=== PATIENT | female | born 1995 | race American Indian/Alaskan Native ===

== ENCOUNTER 2020-06-12 10:43 | Observation (INO) | payer MEDICAID ==
--- NOTE | 2020-06-12 11:51 | Event Note ---
ED Screening Note Date of service: 06/12/20 Time: 11:48 ED Screening Note: 24-year-old female patient presents emergency department with complaints of epigastric abdominal pain with associated nausea and vomiting starting this morning. No history of similar symptoms. No known sick contacts. No current steroid and antibiotic use. Last bowel movement was today. No black or bloody stools. LMP two days ago. No history of prior abdominal surgeries. General: Awake, appropriately interactive. Appears uncomfortable, alternating between pacing the room and sitting hunched over emesis bag. Neck: Supple. Full range of motion intact. Cardiovascular: Normal peripheral perfusion. Pulmonary: No respiratory distress. Patient is speaking normally without use of accessory muscles. Abdomen: Soft, nondistended. Diffuse tenderness to palpation most pronounced along the epigastric/periumbilical area. Skin: No apparent rashes or lesions. Neurological: No facial asymmetry. Speech is clear. Follows commands. Patient is alert and oriented. Musculoskeletal: Moves all four extremities spontaneously with normal range of motion. Psych: Cooperative. Appropriate mood and affect. Patient appears uncomfortable in triage with significant abdominal tenderness; CT abd/pelvis ordered pending HCG results. I have greeted and performed a focused rapid initial assessment of this patient. A comprehensive ED assessment and evaluation of the patient, analysis of all test results, and completion of the medical decision-making process will be conducted by additional ED providers. This initial assessment/diagnostic orders/clinical plan/treatment(s) is/are subject to change based on patients health status, clinical progression and re-assessment. Further treatment and workup at subsequent clinical provider's discretion. Patient/guardian urged not to elope from the ED as their condition may be serious if not clinically assessed and managed.
[2020-06-12 12:17] LABS: Basophils % (Auto) 0.5 % (0.0-1.8); Eosinophils % (Auto) 0.2 % (0.0-4.3); Hematocrit 31.2 % (30.3-42.9); Hemoglobin 10.4 gm/dl (10.1-14.3); Lymphocytes # (Auto) 1.9 K/mm3 (1.2-5.4); Lymphocytes % (Auto) 22.9 % (13.4-35.0); Mean Corpuscular HGB Conc 33 % (30-34); Mean Corpuscular Volume 71 fl (79-97); Monocytes # (Auto) 0.7 K/mm3 (0.0-0.8); Monocytes % (Auto) 8.3 % (0.0-7.3); Platelet Count 344 K/mm3 (140-440)
[2020-06-12 12:32] LABS: Alanine Aminotransferase 8 units/L (7-56); Albumin 4.3 g/dL (3.9-5); Blood Urea Nitrogen 8 mg/dL (7-17); Calcium 9.2 mg/dL (8.4-10.2); Hemolysis Index 0
[2020-06-12 12:35] LABS: BUN/Creatinine Ratio 11
[2020-06-12] MEDS ORDERED: ONDANSETRON 4 MG/2 ML INJ IV ONE ×2 (13:11→13:54)
[2020-06-12] MEDS ORDERED: MORPHINE 4 MG/1 ML INJ IV ONE ×2 (13:11→13:54)
[2020-06-12] MEDS ORDERED: SODIUM CHLORIDE 0.9% 1000 ML 1,000 ML IV ONE (13:57)
[2020-06-12] MEDS ORDERED: PANTOPRAZOLE 40 MG INJ IV ONE (13:59)
--- NOTE | 2020-06-12 13:59 | Emergency Department Report ---
ED Abdominal Pain HPI - General Chief Complaint: Abdominal Pain Stated Complaint: ABD PAIN PUI?: No Time Seen by Provider: 06/12/20 13:10 Source: patient Mode of arrival: Ambulatory Limitations: No Limitations - History of Present Illness Initial Comments: Chief complaint: Stomach pain, vomiting HPI this is a healthy 24-year-old female without significant past medical history who presents with severe diffuse abdominal pain. It is a tugging sensation. 8 out of 10 in severity. She has had copious amount of vomiting. She awakened with the symptoms this morning. 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 None of her patients have Covid symptoms. Patient ate restaurant prepared [place] seafood last night including [place] crab l egs Patient denies fever, cough, shortness of breath, diarrhea. MD Complaint: abdominal pain -: Gradual, This morning Location: diffuse Severity scale (0 -10): 8 Quality: dull, other (Tugging sensation) Consistency: constant Improves With: nothing Worsens With: nothing Context: possible food poisoning Associated Symptoms: nausea, vomiting - Related Data Previous Rx's Medication Instructions Recorded Last Taken Type Acetaminophen 500 mg PO Q8H PRN #12 tablet 02/11/18 Unknown Rx Acyclovir 800 mg PO Q12H 7 Days #14 tablet 02/11/18 Unknown Rx Vit No.130/Iron/Folic 1 each PO QAM 30 Days #30 tablet 02/11/18 Unknown Rx [ Tablet] Vit-Fe Fumar-FA [ 1 tab PO QDAY #30 tablet 02/11/18 Unknown Rx Vitamin] cephALEXin [Keflex] 500 mg PO Q8HR 7 Days #14 cap 02/11/18 Unknown Rx metroNIDAZOLE [Flagyl] 500 mg PO Q12HR 7 Days #14 tab 02/11/18 Unknown Rx Allergies Allergy/AdvReac Type Severity Reaction Status Date / Time No Known Allergies Allergy Verified 02/11/18 00:53 ED Review of Systems ROS: Stated complaint: ABD PAIN Other details as noted in HPI Comment: All other systems reviewed and negative Constitutional: denies: fever, malaise Respiratory: denies: cough, shortness of breath Gastrointestinal: abdominal pain, nausea, vomiting. denies: diarrhea ED Past Medical Hx - Past Medical History Previous Medical History?: No - Surgical History Past Surgical History?: Yes Additional Surgical History: - Social History Smoking Status: Never Smoker Substance Use Type: None - Medications Home Medications: Home Medications Medication Instructions Recorded Confirmed Last Taken Type Acetaminophen 500 mg PO Q8H PRN #12 tablet 02/11/18 Unknown Rx Acyclovir 800 mg PO Q12H 7 Days #14 tablet 02/11/18 Unknown Rx Vit No.130/Iron/Folic 1 each PO QAM 30 Days #30 tablet 02/11/18 Unknown Rx [ Tablet] Vit-Fe Fumar-FA [ 1 tab PO QDAY #30 tablet 02/11/18 Unknown Rx Vitamin] cephALEXin [Keflex] 500 mg PO Q8HR 7 Days #14 cap 02/11/18 Unknown Rx metroNIDAZOLE [Flagyl] 500 mg PO Q12HR 7 Days #14 tab 02/11/18 Unknown Rx ED Physical Exam - General Limitations: No Limitations General appearance: alert, in no apparent distress, other (Patient appears uncomfortable,) - Head Head exam: Present: atraumatic, normocephalic - Eye Eye exam: Present: normal appearance - ENT ENT exam: Present: mucous membranes moist - Neck Neck exam: Present: normal inspection, full ROM - Respiratory Respiratory exam: Present: normal lung sounds bilaterally. Absent: respiratory distress, wheezes, rales, rhonchi - Cardiovascular Cardiovascular Exam: Present: regular rate, normal rhythm, normal heart sounds. Absent: systolic murmur, diastolic murmur, rubs, gallop - GI/Abdominal GI/Abdominal exam: Present: soft, tenderness, guarding (Voluntary guarding, patient is holding abdomen), normal bowel sounds, other (Right lower quadrant tenderness). Absent: distended, rebound - Extremities Exam Extremities exam: Present: normal inspection - Neurological Exam Neurological exam: Present: alert, oriented X3 - Psychiatric Psychiatric exam: Present: normal affect, normal mood - Skin Skin exam: Present: warm, dry, intact, normal color. Absent: rash ED Course Vital Signs 06/12/20 06/12/20 10:55 13:59 Temperature 98.2 F Pulse Rate 78 Respiratory 16 16 Rate Blood Pressure 153/94 Blood Pressure 157/95 [Left] O2 Sat by Pulse 99 98 Oximetry - Reevaluation(s) Reevaluation #1: I was given verbal report from radiologist who detected early appendicitis with dilated appendix and appendicolith. ED Medical Decision Making - Lab Data Result diagrams: 06/12/20 11:33 06/12/20 11:33 Laboratory Results - last 24 hr 06/12/20 06/12/20 06/12/20 11:33 11:33 11:33 WBC 8.4 RBC 4.40 Hgb 10.4 Hct 31.2 MCV 71 L MCH 24 L MCHC 33 RDW 16.0 H Plt Count 344 Lymph % (Auto) 22.9 [place] % (Auto) 8.3 H Eos % (Auto) 0.2 Baso % (Auto) 0.5 Lymph # (Auto) 1.9 [place] # (Auto) 0.7 Eos # (Auto) 0.0 Baso # (Auto) 0.0 Seg Neutrophils % 68.1 Seg Neutrophils # 5.7 Sodium 138 Potassium 3.5 L Chloride 103.9 Carbon Dioxide 24 Anion Gap 14 BUN 8 Creatinine 0.7 Estimated GFR > 60 BUN/Creatinine Ratio 11 Glucose 99 Calcium 9.2 Magnesium Total Bilirubin 0.40 AST 15 ALT 8 Alkaline Phosphatase 73 Total Protein 7.3 Albumin 4.3 Albumin/Globulin Ratio 1.4 Lipase 21 HCG, Quant < 2 06/12/20 11:58 WBC RBC Hgb Hct MCV MCH MCHC RDW Plt Count Lymph % (Auto) [place] % (Auto) Eos % (Auto) Baso % (Auto) Lymph # (Auto) [place] # (Auto) Eos # (Auto) Baso # (Auto) Seg Neutrophils % Seg Neutrophils # Sodium Potassium Chloride Carbon Dioxide Anion Gap BUN Creatinine Estimated GFR BUN/Creatinine Ratio Glucose Calcium Magnesium 2.00 Total Bilirubin AST ALT Alkaline Phosphatase Total Protein Albumin Albumin/Globulin Ratio Lipase HCG, Quant - Radiology Data Radiology results: report reviewed - Medical Decision Making Acute Appendicitis, Dr. Sheehan anticipates surgery today. NPO, IVF, IV analgesia, IV antiemetic, IV Zosyn. Critical care attestation.: If time is entered above; I have spent that time in minutes in the direct care of this critically ill patient, excluding procedure time. ED Disposition Clinical Impression: Acute appendicitis Disposition: OP ADMIT IP TO THIS HOSP Is pt being admited?: Yes Does the pt Need Aspirin: No Condition: Stable Instructions: Abdominal Pain (ED)
--- NOTE | 2020-06-12 14:09 | Cat Scan Report ---
CT ABDOMEN AND PELVIS WITH CONTRAST HISTORY: Abdominal pain, nausea, vomiting COMPARISON: None TECHNIQUE: Routine abdominal and pelvic CT exam performed following intravenous contrast administrat ion.. All CT scans at this location are performed using CT dose reduction for ALARA by means of autom ated exposure control. FINDINGS: CT ABDOMEN: Lung Bases: No significant abnormality. Liver: No significant abnormality. Biliary: No significant abnormality. Spleen: No significant abnormality. Unenlarged. Pancreas: No significant abnormality. Adrenals: No significant abnormality. Kidneys: No significant abnormality. Lymphatics: No lymphadenopathy. Vasculature: No significant abnormality. Bowel/Peritoneum: There is distention of the appendix with appendicolith in the base of the appendix and periappendiceal fat draining suggesting acute appendicitis. There is no abscess. There is no free air or obstruction. CT PELVIC: : No significant abnormality. Lymphatics: No lymphadenopathy. Osseous Structures: No aggressive appearing osseous lesions. Additional Findings: None IMPRESSION: 1. Findings suggesting acute appendicitis. No evidence of abscess or perforation. Signer Name: Charlie Pandey MD Signed: 06/12/2020 2:04 PM Workstation Name: [email or web address]
[2020-06-12] MEDS ORDERED: PIPERACIL/TAZOBACTA 4.5/NS 100 4.5 GM/100 ML VIAL IV ONE (14:29)
--- NOTE | 2020-06-12 14:33 | Consultation ---
Medications and Allergies Allergies Allergy/AdvReac Type Severity Reaction Status Date / Time No Known Allergies Allergy Verified 02/11/18 00:53 Home Medications Medication Instructions Recorded Confirmed Last Taken Type Acetaminophen 500 mg PO Q8H PRN #12 tablet 02/11/18 Unknown Rx Acyclovir 800 mg PO Q12H 7 Days #14 tablet 02/11/18 Unknown Rx Vit No.130/Iron/Folic 1 each PO QAM 30 Days #30 tablet 02/11/18 Unknown Rx [ Tablet] Vit-Fe Fumar-FA [ 1 tab PO QDAY #30 tablet 02/11/18 Unknown Rx Vitamin] cephALEXin [Keflex] 500 mg PO Q8HR 7 Days #14 cap 02/11/18 Unknown Rx metroNIDAZOLE [Flagyl] 500 mg PO Q12HR 7 Days #14 tab 02/11/18 Unknown Rx Active Meds: Active Medications Sodium Chloride (Nacl 0.9% 1000 Ml) 1,000 mls @ 999 mls/hr IV BOLUS ONE Stop: 06/12/20 14:57 Last Admin: 06/12/20 14:07 Dose: 999 mls/hr Documented by: Piperacillin Sod/Tazobactam Sod (Zosyn/Ns 4.5gm/100ml) 4.5 gm in 100 mls @ 200 mls/hr IV ONCE ONE; Protocol Stop: 06/12/20 14:58 Exam Vital Signs Temp Pulse Resp BP Pulse Ox 98.2 F 78 16 153/94 99 06/12/20 10:55 06/12/20 10:55 06/12/20 10:55 06/12/20 10:55 06/12/20 10:55 Results - Labs 06/12/20 11:33 06/12/20 11:33 Abnormal lab results 06/12/20 06/12/20 Range/Units 11:33 11:33 MCV 71 L (79-97) fl MCH 24 L (28-32) pg RDW 16.0 H (13.2-15.2) % [place] % (Auto) 8.3 H (0.0-7.3) % Potassium 3.5 L (3.6-5.0) mmol/L Diabetes panel 06/12/20 Range/Units 11:33 Sodium 138 (137-145) mmol/L Potassium 3.5 L (3.6-5.0) mmol/L Chloride 103.9 (98-107) mmol/L Carbon Dioxide 24 (22-30) mmol/L BUN 8 (7-17) mg/dL Creatinine 0.7 (0.6-1.2) mg/dL Glucose 99 (65-100) mg/dL Calcium 9.2 (8.4-10.2) mg/dL AST 15 (5-40) units/L ALT 8 (7-56) units/L Alkaline Phosphatase 73 (35-129) units/L Total Protein 7.3 (6.3-8.2) g/dL Albumin 4.3 (3.9-5) g/dL Calcium panel 06/12/20 Range/Units 11:33 Calcium 9.2 (8.4-10.2) mg/dL Albumin 4.3 (3.9-5) g/dL Pituitary panel 06/12/20 Range/Units 11:33 Sodium 138 (137-145) mmol/L Potassium 3.5 L (3.6-5.0) mmol/L Chloride 103.9 (98-107) mmol/L Carbon Dioxide 24 (22-30) mmol/L BUN 8 (7-17) mg/dL Creatinine 0.7 (0.6-1.2) mg/dL Glucose 99 (65-100) mg/dL Calcium 9.2 (8.4-10.2) mg/dL Adrenal panel 06/12/20 Range/Units 11:33 Sodium 138 (137-145) mmol/L Potassium 3.5 L (3.6-5.0) mmol/L Chloride 103.9 (98-107) mmol/L Carbon Dioxide 24 (22-30) mmol/L BUN 8 (7-17) mg/dL Creatinine 0.7 (0.6-1.2) mg/dL Glucose 99 (65-100) mg/dL Calcium 9.2 (8.4-10.2) mg/dL Total Bilirubin 0.40 (0.1-1.2) mg/dL AST 15 (5-40) units/L ALT 8 (7-56) units/L Alkaline Phosphatase 73 (35-129) units/L Total Protein 7.3 (6.3-8.2) g/dL Albumin 4.3 (3.9-5) g/dL
[2020-06-12 14:43] LABS: Bilirubin,Urine NEG (Negative); Blood,Urine NEG (Negative); Color,Urine Yellow (Yellow); Mucus,Urine FEW /HPF; Protein,Urine <15 mg/dL mg/dL (Negative); RBC,Urine < 1.0 /HPF (0.0-6.0); Urobilinogen,Urine < 2.0 mg/dL (<2.0)
--- NOTE | 2020-06-12 15:06 | Consultation ---
History of Present Illness Consult date: 06/12/20 Reason for consult: abdominal pain Chief complaint: abdominal pain - History of present illness History of present illness: 24 yo F with no PMHx who presented to the emergency room with acute onset abdomi nal pain that started today. She states that the pain is located all over but started in the right mid abdomen. She has never had pain like this before. The pain is sharp and radiates all over. There are no exacerbating or alleviating factors. She states she had multiple episodes of nausea and vomiting. No fevers or chills. No constipation or diarrhea. No chest pain or shortness of breath. Past History Past Medical History: No medical history Past Surgical History: Social history: smoking (Marijuana), alcohol abuse (Social). denies: prescription drug abuse, IV drug use Family history: no significant family history Medications and Allergies Allergies Allergy/AdvReac Type Severity Reaction Status Date / Time No Known Allergies Allergy Verified 02/11/18 00:53 Home Medications Medication Instructions Recorded Confirmed Last Taken Type Acetaminophen 500 mg PO Q8H PRN #12 tablet 02/11/18 Unknown Rx Acyclovir 800 mg PO Q12H 7 Days #14 tablet 02/11/18 Unknown Rx Vit No.130/Iron/Folic 1 each PO QAM 30 Days #30 tablet 02/11/18 Unknown Rx [ Tablet] Vit-Fe Fumar-FA [ 1 tab PO QDAY #30 tablet 02/11/18 Unknown Rx Vitamin] cephALEXin [Keflex] 500 mg PO Q8HR 7 Days #14 cap 02/11/18 Unknown Rx metroNIDAZOLE [Flagyl] 500 mg PO Q12HR 7 Days #14 tab 02/11/18 Unknown Rx Review of Systems All systems: negative (10 point ROS performed and negative except for that listed in HPI) Exam Vital Signs Temp Pulse Resp BP Pulse Ox 98.2 F 78 16 153/94 99 06/12/20 10:55 06/12/20 10:55 06/12/20 10:55 06/12/20 10:55 06/12/20 10:55 Narrative exam: Gen.: Awake, alert, oriented 3. No apparent distress ENT: Trachea midline. No lymphadenopathy. No scleral icterus or conjunctival pallor CV: S1, S2 present Respiratory: No audible wheezes Abdomen: Soft, nondistended. There is tenderness to palpation in the left lower quadrant, right lower quadrant with rebound and guarding. No rigidity Extremities: No clubbing, cyanosis, edema Results - Labs 06/12/20 11:33 06/12/20 11:33 Abnormal lab results 06/12/20 06/12/20 06/12/20 Range/Units 11:33 11:33 13:58 MCV 71 L (79-97) fl MCH 24 L (28-32) pg RDW 16.0 H (13.2-15.2) % [place] % (Auto) 8.3 H (0.0-7.3) % Potassium 3.5 L (3.6-5.0) mmol/L Ur Specific [place] 1.049 H (1.003-1.030) U Epithel Cells (Auto) 14.0 H (0-13.0) /HPF Diabetes panel 06/12/20 Range/Units 11:33 Sodium 138 (137-145) mmol/L Potassium 3.5 L (3.6-5.0) mmol/L Chloride 103.9 (98-107) mmol/L Carbon Dioxide 24 (22-30) mmol/L BUN 8 (7-17) mg/dL Creatinine 0.7 (0.6-1.2) mg/dL Glucose 99 (65-100) mg/dL Calcium 9.2 (8.4-10.2) mg/dL AST 15 (5-40) units/L ALT 8 (7-56) units/L Alkaline Phosphatase 73 (35-129) units/L Total Protein 7.3 (6.3-8.2) g/dL Albumin 4.3 (3.9-5) g/dL Calcium panel 06/12/20 Range/Units 11:33 Calcium 9.2 (8.4-10.2) mg/dL Albumin 4.3 (3.9-5) g/dL Pituitary panel 06/12/20 Range/Units 11:33 Sodium 138 (137-145) mmol/L Potassium 3.5 L (3.6-5.0) mmol/L Chloride 103.9 (98-107) mmol/L Carbon Dioxide 24 (22-30) mmol/L BUN 8 (7-17) mg/dL Creatinine 0.7 (0.6-1.2) mg/dL Glucose 99 (65-100) mg/dL Calcium 9.2 (8.4-10.2) mg/dL Adrenal panel 06/12/20 Range/Units 11:33 Sodium 138 (137-145) mmol/L Potassium 3.5 L (3.6-5.0) mmol/L Chloride 103.9 (98-107) mmol/L Carbon Dioxide 24 (22-30) mmol/L BUN 8 (7-17) mg/dL Creatinine 0.7 (0.6-1.2) mg/dL Glucose 99 (65-100) mg/dL Calcium 9.2 (8.4-10.2) mg/dL Total Bilirubin 0.40 (0.1-1.2) mg/dL AST 15 (5-40) units/L ALT 8 (7-56) units/L Alkaline Phosphatase 73 (35-129) units/L Total Protein 7.3 (6.3-8.2) g/dL Albumin 4.3 (3.9-5) g/dL - Imaging CT scan - abdomen: report reviewed, image reviewed CT scan - pelvis: report reviewed, image reviewed Assessment and Plan 24-year-old female with acute appendicitis Plan: 1. admit to hospitalist service 2. NPO 2. IVF 4. IV abx - received zosyn in ER 5. prn pain control 6. Recommend appendectomy. I discussed all risks, benefits, alternatives to surgery with the patient. These risks included but were not limited to infection, bleeding, injury to surrounding structures, possible conversion to open, possible need for additional surgery/procedures. All questions were answered and consent obtained. 7. We will proceed to the OR today for laparoscopic appendectomy. Thank you for this consultation. Please call with any questions or concerns. Evaluation and treatment of this patient was during the time of the national and state emergency arising from COVID19 coronavirus pandemic. Treatment and procedures performed meet the current and available best practice and guidelines for patient during the COVID pandemic.
[2020-06-12] MEDS ORDERED: fentaNYL 100 MCG/2 ML INJ ONE (15:19)
[2020-06-12] MEDS ORDERED: propofoL 200 MG/20 ML VIAL IV ONE (15:20)
[2020-06-12] MEDS ORDERED: BUPIVACAINE/PF (0.25%) 2.5 MG/ML 30 ML VIAL INFILTRATI ONE ×2 (15:23→16:36)
[2020-06-12] MEDS ORDERED: LIDOCAINE (1%) 10 MG/1 ML VIAL 20 ML MDV ONE (15:23)
--- NOTE | 2020-06-12 15:35 | Anesthesia Day of Surgery ---
Anesthesia Day of Surgery - Day of Surgery Patient Examined: Yes Patient H&P Reviewed: Yes Patient is NPO: Yes
--- NOTE | 2020-06-12 15:37 | Anesthesia Consultation ---
Anesthesia Consult and Med Hx Date of service: 06/12/20 - Airway Anesthetic Teeth Evaluation: Good ROM Head & Neck: Adequate Mental/Hyoid Distance: Adequate Mallampati Class: Class II Intubation Access Assessment: Good - Pulmonary Exam CTA: Yes - Cardiac Exam Cardiac Exam: RRR - Pre-Operative Health Status ASA Pre-Surgery Classification: ASA2, Emergency Proposed Anesthetic Plan: General - Pulmonary Hx Smoking: Yes (MJ) - Hematic Hx Sickle Cell Disease: No - Other Systems Hx Alcohol Use: Yes Hx Substance Use: Yes (MJ)
[2020-06-12] MEDS ORDERED: HYDROcodone/ACETAMINOPHEN 5-325 MG TAB PO PRN (15:48)
[2020-06-12] MEDS ORDERED: ONDANSETRON 4 MG/2 ML INJ IV PRN ×2 (15:53→21:39)
[2020-06-12] MEDS ORDERED: HYDROmorphone 1 MG/1 ML INJ IV PRN ×2 (15:53)
[2020-06-12] MEDS ORDERED: GLYCOPYRROLATE 0.4 MG/2 ML INJ ONE (16:00)
[2020-06-12] MEDS ORDERED: NEOSTIGMINE 10MG/10 ML INJ MDV ONE (16:00)
[2020-06-12] MEDS ORDERED: SUCCINYLCHOLINE CHLORIDE 200 MG/10 ML INJ MDV ONE (16:06)
[2020-06-12] MEDS ORDERED: ROCURONIUM 50 MG/5 ML INJ IV ONE (16:06)
[2020-06-12] MEDS ORDERED: ONDANSETRON 4 MG/2 ML INJ ONE (16:06)
[2020-06-12] MEDS ORDERED: LIDOCAINE MPF (2%) 20 MG/1 ML VIAL 5 ML ONE (16:06)
[2020-06-12] MEDS ORDERED: dexAMETHasone 20 MG/5 ML VIAL ONE (16:06)
[2020-06-12] MEDS ORDERED: KETOROLAC 30 MG/1 ML INJ ONE (16:06)
[2020-06-12] MEDS ORDERED: SODIUM CHLORIDE 0.9% IRR 1,500 ML BOTTLE IR ONE (16:37)
[2020-06-12] MEDS ORDERED: LIDOCAINE (1%) 10 MG/1 ML VIAL 20 ML MDV INFILTRATI ONE (16:37)
--- NOTE | 2020-06-12 16:41 | Post Operative Note ---
Pre-op diagnosis: acute appendicitis Post-op diagnosis: same Findings: thickened, inflamed appendix Procedure: laparoscopic appendectomy Anesthesia: COREYA, local Surgeon: ARIEL SIFUENTES Estimated blood loss: minimal Pathology: list (appendix) Specimen disposition: to lab Condition: stable Disposition: PACU
[2020-06-12] MEDS ORDERED: SODIUM CHLORIDE 0.9% 1000 ML 1,000 ML ONE (16:59)
--- NOTE | 2020-06-12 17:32 | History and Physical Report ---
History of Present Illness Date of examination: 06/12/20 Date of admission: 06/12/20 14:26 Chief complaint: RLQ pain since AM History of present illness: Healthy 24-year-old female without significant past medical history presents with severe diffuse abdominal pain. pain is 8 out of 10 in severity. She has had copious amount of vomiting. She awakened with the symptoms this morning. 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 None of her patients have Covid symptoms. Patient ate restaurant prepared [place] seafood last night including [place] crab legs Patient denies fever, cough, shortness of breath, diarrhea. MD Complaint: abdominal pain -: Gradual, This morning Location: diffuse Severity scale (0 - 10): 8 Quality: dull, other (Tugging sensation) onstant Improves With: nothing Worsens With: nothing Context: possible food poisoning Associated Symptoms: nausea, vomiting - Past Medical History Previous Medical History?: No - Surgical History Past Surgical History?: Yes Additional Surgical History: - Social History Smoking Status: Never Smoker Substance Use Type: None - Medications Home Medications: Home Medications Medication Instructions Recorded Confirmed Last Taken Type Acetaminophen 500 mg PO Q8H PRN #12 tablet 02/11/18 Unknown Rx Acyclovir 800 mg PO Q12H 7 Days #14 tablet 02/11/18 Unknown Rx Vit No.130/Iron/Folic 1 each PO QAM 30 Days #30 tablet 02/11/18 Unknown Rx [ Tablet] Vit-Fe Fumar-FA [ 1 tab PO QDAY #30 tablet 02/11/18 Unknown Rx Vitamin] cephALEXin [Keflex] 500 mg PO Q8HR 7 Days #14 cap 02/11/18 Unknown Rx metroNIDAZOLE [Flagyl] 500 mg PO Q12HR 7 Days #14 tab 02/11/18 Unknown Rx Review of Systems ROS: Stated complaint: ABD PAIN Other details as noted in HPI Comment: All other systems reviewed and negative Constitutional: denies: fever, malaise Respiratory: denies: cough, shortness of breath Gastrointestinal: abdominal pain, nausea, vomiting. denies: diarrhea Past History Past Surgical History: appendectomy, Social history: smoking (Marijuana), alcohol abuse (Social). denies: prescription drug abuse, IV drug use Family history: no significant family history Medications and Allergies Allergies Allergy/AdvReac Type Severity Reaction Status Date / Time No Known Allergies Allergy Verified 02/11/18 00:53 Home Medications Medication Instructions Recorded Confirmed Last Taken Type Acetaminophen 500 mg PO Q8H PRN #12 tablet 02/11/18 Unknown Rx Acyclovir 800 mg PO Q12H 7 Days #14 tablet 02/11/18 Unknown Rx Vit No.130/Iron/Folic 1 each PO QAM 30 Days #30 tablet 02/11/18 Unknown Rx [ Tablet] Vit-Fe Fumar-FA [ 1 tab PO QDAY #30 tablet 02/11/18 Unknown Rx Vitamin] cephALEXin [Keflex] 500 mg PO Q8HR 7 Days #14 cap 02/11/18 Unknown Rx metroNIDAZOLE [Flagyl] 500 mg PO Q12HR 7 Days #14 tab 02/11/18 Unknown Rx oxyCODONE /ACETAMINOPHEN [Percocet 1 tab PO Q6H PRN #20 tablet 06/13/20 Unknown Rx 5/325 mg] Active Meds: Active Medications Hydrocodone Bitart/Acetaminophen (Hydrocodone/Acetaminophen 5-325 Mg Tab) 1 each PO Q4H PRN PRN Reason: Pain, Moderate (4-6) Hydromorphone HCl (Hydromorphone 1 Mg/1 Ml Inj) 0.25 mg IV Q10MIN PRN PRN Reason: Pain, Moderate (4-6) Hydromorphone HCl (Hydromorphone 1 Mg/1 Ml Inj) 0.5 mg IV Q10MIN PRN PRN Reason: Pain , Severe (7-10) Ondansetron HCl (Ondansetron 4 Mg/2 Ml Inj) 4 mg IV ONCE PRN PRN Reason: Nausea And Vomiting Review of Systems All systems: negative Exam - Constitutional Vitals: Temp Pulse Resp BP Pulse Ox 96.8 F L 71 13 117/60 100 06/12/20 16:56 06/12/20 17:11 06/12/20 17:11 06/12/20 17:11 06/12/20 17:11 General appearance: Present: no acute distress, well-nourished - EENT Eyes: Present: PERRL ENT: hearing intact, clear oral mucosa - Neck Neck: Present: supple, normal ROM - Respiratory Respiratory effort: normal Respiratory: bilateral: CTA - Cardiovascular Heart rate: 78 Rhythm: regular Heart Sounds: Present: S1 & S2. Absent: rub, click - Extremities Extremities: pulses symmetrical, No edema Peripheral Pulses: within normal limits - Abdominal General gastrointestinal: Present: soft, tender, non-distended, normal bowel sounds Localized gastrointestinal: tender: RLQ, guarding: RLQ, rebound: RLQ Female genitourinary: Present: normal - Rectal Rectal Exam: deferred - Integumentary Integumentary: Present: clear, warm, dry - Musculoskeletal Musculoskeletal: gait normal, strength equal bilaterally - Psychiatric Psychiatric: appropriate mood/affect, intact judgment & insight - Neurologic Neurologic: CNII-XII intact, moves all extremities - Allied Health Allied health notes reviewed: nursing, case management Results - Labs CBC & Chem 7: 06/12/20 11:33 06/12/20 11:33 Labs: Laboratory Last Values WBC 8.4 K/mm3 (4.5-11.0) 06/12/20 11:33 RBC 4.40 M/mm3 (3.65-5.03) 06/12/20 11:33 Hgb 10.4 gm/dl (10.1-14.3) 06/12/20 11:33 Hct 31.2 % (30.3-42.9) 06/12/20 11:33 MCV 71 fl (79-97) L 06/12/20 11:33 MCH 24 pg (28-32) L 06/12/20 11:33 MCHC 33 % (30-34) 06/12/20 11:33 RDW 16.0 % (13.2-15.2) H 06/12/20 11:33 Plt Count 344 K/mm3 (140-440) 06/12/20 11:33 Lymph % (Auto) 22.9 % (13.4-35.0) 06/12/20 11:33 [place] % (Auto) 8.3 % (0.0-7.3) H 06/12/20 11:33 Eos % (Auto) 0.2 % (0.0-4.3) 06/12/20 11:33 Baso % (Auto) 0.5 % (0.0-1.8) 06/12/20 11:33 Lymph # (Auto) 1.9 K/mm3 (1.2-5.4) 06/12/20 11:33 [place] # (Auto) 0.7 K/mm3 (0.0-0.8) 06/12/20 11:33 Eos # (Auto) 0.0 K/mm3 (0.0-0.4) 06/12/20 11:33 Baso # (Auto) 0.0 K/mm3 (0.0-0.1) 06/12/20 11:33 Seg Neutrophils % 68.1 % (40.0-70.0) 06/12/20 11:33 Seg Neutrophils # 5.7 K/mm3 (1.8-7.7) 06/12/20 11:33 Sodium 138 mmol/L (137-145) 06/12/20 11:33 Potassium 3.5 mmol/L (3.6-5.0) L 06/12/20 11:33 Chloride 103.9 mmol/L (98-107) 06/12/20 11:33 Carbon Dioxide 24 mmol/L (22-30) 06/12/20 11:33 Anion Gap 14 mmol/L 06/12/20 11:33 BUN 8 mg/dL (7-17) 06/12/20 11:33 Creatinine 0.7 mg/dL (0.6-1.2) 06/12/20 11:33 Estimated GFR > 60 ml/min 06/12/20 11:33 BUN/Creatinine Ratio 11 % 06/12/20 11:33 Glucose 99 mg/dL (65-100) 06/12/20 11:33 Calcium 9.2 mg/dL (8.4-10.2) 06/12/20 11:33 Magnesium 2.00 mg/dL (1.7-2.3) 06/12/20 11:58 Total Bilirubin 0.40 mg/dL (0.1-1.2) 06/12/20 11:33 AST 15 units/L (5-40) 06/12/20 11:33 ALT 8 units/L (7-56) 06/12/20 11:33 Alkaline Phosphatase 73 units/L (35-129) 06/12/20 11:33 Total Protein 7.3 g/dL (6.3-8.2) 06/12/20 11:33 Albumin 4.3 g/dL (3.9-5) 06/12/20 11:33 Albumin/Globulin Ratio 1.4 % 06/12/20 11:33 Lipase 21 units/L (13-60) 06/12/20 11:33 HCG, Quant < 2 mIU/mL (0-4) 06/12/20 11:33 Urine Color Yellow (Yellow) 06/12/20 13:58 Urine Turbidity Clear (Clear) 06/12/20 13:58 Urine pH 7.0 (5.0-7.0) 06/12/20 13:58 Ur Specific [place] 1.049 (1.003-1.030) H 06/12/20 13:58 Urine Protein <15 mg/dl mg/dL (Negative) 06/12/20 13:58 Urine Glucose (UA) Neg mg/dL (Negative) 06/12/20 13:58 Urine Ketones Tr mg/dL (Negative) 06/12/20 13:58 Urine Blood Neg (Negative) 06/12/20 13:58 Urine Nitrite Neg (Negative) 06/12/20 13:58 Urine Bilirubin Neg (Negative) 06/12/20 13:58 Urine Urobilinogen < 2.0 mg/dL (<2.0) 06/12/20 13:58 Ur Leukocyte Esterase Tr (Negative) 06/12/20 13:58 Urine WBC (Auto) 1.0 /HPF (0.0-6.0) 06/12/20 13:58 Urine RBC (Auto) < 1.0 /HPF (0.0-6.0) 06/12/20 13:58 U Epithel Cells (Auto) 14.0 /HPF (0-13.0) H 06/12/20 13:58 Urine Mucus Few /HPF 06/12/20 13:58 - Imaging and Cardiology Imaging and Cardiology: Abd CT There is distention of the appendix with appendicolith in the base of the appendix and periappendiceal fat draining suggesting acute appendicitis. There is no abscess. There is no free air or obstruction. CT PELVIC: : No significant abnormality. Lymphatics: No lymphadenopathy. Osseous Structures: No aggressive appearing osseous lesions. Additional Findings: None IMPRESSION: 1. Findings suggesting acute appendicitis. No evidence of abscess or perforation. Assessment and Plan Advance Directives: Yes (Full code) VTE prophylaxis?: Chemical - Patient Problems (1) Acute appendicitis Current Visit: Yes Status: Acute Plan to address problem: Patient going gor emergent surgery--Appendectomt Surgery consult appreciated pain mgmnt as necessary (2) Hypokalemia Current Visit: Yes Status: Acute Plan to address problem: Supplemented (3) DVT prophylaxis Current Visit: Yes Status: Acute Plan to address problem: On SCD's and GI prophylaxis
--- NOTE | 2020-06-12 17:32 | Operative Report ---
Operative Report Operative Report: Date of operation: 06/12/20 Pre-op diagnosis: acute appendicitis Post-op diagnosis: same Findings: thickened, inflamed appendix Procedure: laparoscopic appendectomy Anesthesia: COREYA, local Surgeon: ARIEL SIFUENTES Estimated blood loss: minimal Pathology: list (appendix) Specimen disposition: to lab Condition: stable Disposition: PACU HPI and indication: 24 yo F presented to ER with abdominal pain for 1 day. She was found to have acute appendicitis on CT scan. All results discussed with the patient and it was recommended that she undergo appendectomy. All risk, benefits, alternatives to surgery were discussed and questions answered. Consent was obtained. Procedure in detail: Patient was identified in the preop area and taken back to the OR and placed on the OR table in supine position. After anesthesia was induced a capellan catheter was steriley placed by the circulating nurse. The left arm was tucked and all bony prominences padded appropriately. A time out was performed. Local anesthetic was infilitrated into all skin incision sites. A supraumbilical incision was made using a 11 blade through which a veress needle was inserted. The positioning of the veress needle was confirmed using the saline drop test. The abdomen was then insufflated to 15mmHg without incident. The veress needle was withdrawn and a 5mm Optiview trocar was placed through this incision. The abdomen was inspected and there was no underlying injury to the abdominal structures. A 5mm suprapubic trocar and a 12 mm LLQ trocar were placed under direct visualization. The patient was placed in Trendelenburg and tilted to the left. The appendix was visualized and noted to be inflamed, thickened without evidence of perforation. There were adhesions to the lateral abdominal wall.. These adhesions were dissected using the harmonic scalpel. The base of the appendix was identified. The mesentery of the appendix was ligated using the harmonic scalpel. The base of the appendix was transected using an ethicon flex stapler 45mm white load. The appendix was placed into an endocatch bag and removed via the 12 mm port. This was passed off the table as specimen. The staple line and mesentery were then inspected. 2 clips were placed on the lateral aspect of the staple line for very mild venous oozing. Hemostasis was very carefully ensured. The 12 mm port fascia was then closed with a interrupted 0 Vicryl stitch using the Bob Morales device. The remainder of the ports were removed under direct visualization and the abdomen desufflated. All skin incisions were closed using 4-0 monocryl subcuticular stitches and skin glue. All skin incisions were once again infiltrated with local anesthetic. At the end of the case, all sponge, instrument, sharp counts were correct x2. The patient was awoken from anesthesia, capellan catheter removed, and she was taken to PACU in stable condition.
--- NOTE | 2020-06-12 17:51 | Post Anesthesia Evaluation ---
- Post Anesthesia Evaluation Patient Participated: Yes Airway Patent: Yes Stable Respiratory Function: Yes Nausea/Vomiting: No Temp > 96.8F: Yes Pain Manageable: Yes Adequeate Hydration: Yes Anesthesia Complications: No Block Receding Appropriately: Not Applicable Patient on Ventilator: No
[2020-06-12] MEDS ORDERED: oxyCODONE /ACETAMINOPHEN 5-325MG TAB PO PRN (21:39)
[2020-06-12] MEDS ORDERED: ACETAMINOPHEN 325 MG TAB PO PRN (21:39)
[2020-06-12] MEDS ORDERED: D5W/0.9% NACL 1,000 ML IV SCH (22:00)
[2020-06-12] MEDS: FAMOTIDINE 20 MG/2 ML INJ IV SCH (22:06)
[2020-06-12] MEDS: HYDROmorphone 1 MG/1 ML INJ IV PRN (23:34)
[2020-06-13] MEDS: HYDROmorphone 1 MG/1 ML INJ IV PRN (05:11)
--- NOTE | 2020-06-13 05:33 | Progress Note ---
Assessment and Plan 24-year-old female status post laparoscopic appendectomy, postop day 1 1. Reg diet 2. dc IVF 3. prn PO pain control 4. IS/pulm toilet 5. ok to dc from surgery standpoint - RX for percocet left on chart along with dc instructions. Pt instructed to follow up in surgery clinic in 2weeks. Thank you for this consultation. Please call with any questions or concerns. Subjective Date of service: 06/13/20 Narrative: Patient seen and examined. Complains of soreness at site of incisions. No fevers or chills. No nausea or vomiting. Tolerating a diet. Ambulating urinating on her own. Objective Vital Signs - 12hr 06/12/20 06/12/20 06/12/20 17:56 19:15 19:57 Temperature 98.4 F Pulse Rate 66 66 Respiratory 14 16 Rate Blood Pressure 114/52 Blood Pressure 112/45 [Left] O2 Sat by Pulse 100 100 100 Oximetry 06/12/20 06/13/20 23:39 05:00 Temperature 98 F 97.3 F L Pulse Rate 61 56 L Respiratory 16 16 Rate Blood Pressure Blood Pressure 117/67 108/54 [Left] O2 Sat by Pulse 100 100 Oximetry - General physical appearance Narrative Exam: Gen.: Awake, alert, oriented 3. No apparent distress CV: S1, S2 present Respiratory: No audible wheezes Abdomen: Soft Extremities: No clubbing, cyanosis, edema - Labs 06/12/20 11:33 06/12/20 11:33 Diabetes panel 06/12/20 Range/Units 11:33 Sodium 138 (137-145) mmol/L Potassium 3.5 L (3.6-5.0) mmol/L Chloride 103.9 (98-107) mmol/L Carbon Dioxide 24 (22-30) mmol/L BUN 8 (7-17) mg/dL Creatinine 0.7 (0.6-1.2) mg/dL Glucose 99 (65-100) mg/dL Calcium 9.2 (8.4-10.2) mg/dL AST 15 (5-40) units/L ALT 8 (7-56) units/L Alkaline Phosphatase 73 (35-129) units/L Total Protein 7.3 (6.3-8.2) g/dL Albumin 4.3 (3.9-5) g/dL Calcium panel 06/12/20 Range/Units 11:33 Calcium 9.2 (8.4-10.2) mg/dL Albumin 4.3 (3.9-5) g/dL Pituitary panel 06/12/20 Range/Units 11:33 Sodium 138 (137-145) mmol/L Potassium 3.5 L (3.6-5.0) mmol/L Chloride 103.9 (98-107) mmol/L Carbon Dioxide 24 (22-30) mmol/L BUN 8 (7-17) mg/dL Creatinine 0.7 (0.6-1.2) mg/dL Glucose 99 (65-100) mg/dL Calcium 9.2 (8.4-10.2) mg/dL Adrenal panel 06/12/20 Range/Units 11:33 Sodium 138 (137-145) mmol/L Potassium 3.5 L (3.6-5.0) mmol/L Chloride 103.9 (98-107) mmol/L Carbon Dioxide 24 (22-30) mmol/L BUN 8 (7-17) mg/dL Creatinine 0.7 (0.6-1.2) mg/dL Glucose 99 (65-100) mg/dL Calcium 9.2 (8.4-10.2) mg/dL Total Bilirubin 0.40 (0.1-1.2) mg/dL AST 15 (5-40) units/L ALT 8 (7-56) units/L Alkaline Phosphatase 73 (35-129) units/L Total Protein 7.3 (6.3-8.2) g/dL Albumin 4.3 (3.9-5) g/dL
[2020-06-13 07:33] VITALS: BP 107/52
[2020-06-13 08:05] LABS: Hematocrit 28.2 % (30.3-42.9); Lymphocytes # (Auto) 0.9 K/mm3 (1.2-5.4); Lymphocytes % (Auto) 7.7 % (13.4-35.0); Mean Corpuscular HGB Conc 32 % (30-34); Mean Corpuscular Volume 71 fl (79-97); Monocytes # (Auto) 1.1 K/mm3 (0.0-0.8); Monocytes % (Auto) 9.6 % (0.0-7.3); Platelet Count 294 K/mm3 (140-440); Red Blood Count 3.97 M/mm3 (3.65-5.03); Red Cell Distribution Width 15.8 % (13.2-15.2)
[2020-06-13 08:08] LABS: Alanine Aminotransferase 7 units/L (7-56); Albumin 3.4 g/dL (3.9-5); Blood Urea Nitrogen 7 mg/dL (7-17); Calcium 8.3 mg/dL (8.4-10.2); Hemolysis Index 0
[2020-06-13 08:15] LABS: BUN/Creatinine Ratio 10
[2020-06-13] MEDS: FAMOTIDINE 20 MG/2 ML INJ IV SCH ×2 (08:15→10:00)
--- NOTE | 2020-06-13 09:23 | Discharge Summary ---
Providers - Providers Date of Admission: 06/12/20 14:26 Date of discharge: 06/13/20 Attending physician: DORON PALOMARES MD 06/12/20 14:26 Consult to Physician [CONS] Stat Comment: Consulting Provider: ARIEL SIFUENTES Physician Instructions: Reason For Exam: appendicitis Primary care physician: ADULT [employer] Hospitalization Reason for admission: Acute appendicitis Condition: Stable Hospital course: 24-year-old female without significant past medical history presents with severe diffuse abdominal pain. pain is 8 out of 10 in severity. She has had copious amount of vomiting. She awakened with the symptoms, came to [facility], CT of abdomen resulted in acute appendicitis. Surgery consulted, pt underwent appendectomy, no complications, pt cleared for DC, follow up with surgery in 2 weeks. Disposition: DC-01 TO HOME OR SELFCARE Final Discharge Diagnosis (Prints w/discharge instructions): Acute appendicitis. Hypokalemia. Morbid Obesity Core Measure Documentation - Palliative Care Palliative Care/ Comfort Measures: Not Applicable - Core Measures Any of the following diagnoses?: none Exam - Physical Exam Narrative exam: General appearance: obeses, no acute distress, well-nourished EENT: PERRL, EOM intact, hearing intact, clear oral mucosa, dentition normal Neck: Present: supple, normal ROM Respiratory: bilateral: CTA, negative: rales, rhonchi, wheezing Cardiovascular: Regular rate/rhythm, Normal S1 & S2. No gallop, rub Extremities: no ischemia, No edema, normal temperature, normal color, Full ROM Abdominal: soft, tender, non-distended, normal bowel sounds. surgical wounds w/o dehiscence Integumentary: Present: clear, warm, dry Psychiatric: appropriate mood/affect, intact judgment & insight Neurologic: CNII-XII intact, moves all extremities - Constitutional Vitals: Temp Pulse Resp BP Pulse Ox 98.2 F 55 L 16 107/52 99 06/13/20 07:21 06/13/20 07:21 06/13/20 07:21 06/13/20 07:21 06/13/20 07:21 Plan Activity: no restrictions Weight Bearing Status: Weight Bear as Tolerated Diet: regular Wound: keep clean and dry, per your surgeon's advice Follow up with: ARIEL SIFUENTES DO [Staff Physician] - 14 Days PRIMARY CARE,MD [Primary Care Provider] - 7 Days Prescriptions: oxyCODONE /ACETAMINOPHEN [Percocet 5/325 mg] 1 tab PO Q6H PRN #20 tablet PRN Reason: Pain , Severe (7-10)
== END 2020-06-13 16:22 | disposition home or self-care (01) ==
LOC: ED 10:43 → 3A 14:26 → 3B-SURG 18:01
PROVIDERS: ADMIT Internal Medicine; ATTEND Family Medicine
DX: K35.80 Unspecified acute appendicitis (principal); E87.6 Hypokalemia; Z98.891 History of uterine scar from previous surgery; Z90.49 Acquired absence of other specified parts of digestive tract; Z79.899 Other long term (current) drug therapy
CPT/HCPCS: 36415; 44970; 74177; 80053; 81001; 83036; 83690; 83735; 84702; 85025; 88304; 96361; 96365; 96375; 96376; 99285; C9113; G0378; J0330; J1100; J1170; J1885; J2270; J2405; J2543; J2704; J2710; J3010; J7030; J7042; Q9967

== ENCOUNTER 2021-06-15 02:28 | Emergency (ER) | payer MEDICAID ==
--- NOTE | 2021-06-15 07:45 | Emergency Department Report ---
Minor Respiratory - HPI Chief Complaint: Sore Throat Stated Complaint: THROAT PAIN Time Seen by Provider: 06/15/21 07:43 Duration: 2 Days Pain Location: Throat Severity: mild Minor Respiratory: Yes Sore Throat, Yes Able to Tolerate Fluids, Yes Fever, No Rhinorrhea, No Ear Pain, No Cough, No Sick Contacts, No Hemoptysis, No Chest Pain, No Shortness of Breath Other History: Patient is a 25-year-old that comes to the emergency room with sore throat and fever. ABCs are intact. She is controlling secretions. There is no abscess. Patient is febrile in triage. ED Review of Systems ROS: Stated complaint: THROAT PAIN Other details as noted in HPI Comment: All other systems reviewed and negative ED Past Medical Hx - Past Medical History Previous Medical History?: No Hx Congestive Heart Failure: No Hx Sickle Cell Disease: No Hx Asthma: No Hx COPD: No Hx HIV: No - Surgical History Past Surgical History?: Yes Hx Appendectomy: Yes Additional Surgical History: - Family History Family history: no significant - Social History Smoking Status: Never Smoker Substance Use Type: None - Medications Home Medications: Home Medications Medication Instructions Recorded Confirmed Last Taken Type Amoxicillin [Trimox CAP] 500 mg PO BID #20 capsule 06/15/21 Unknown Rx Minor Respiratory Exam - Exam General: Vital signs noted. No distress. Alert and acting appropriately. HEENT: Yes Moist Mucous Membranes, No Pharyngeal Erythema, No Pharyngeal Exudates, No Rhinorrhea, No Conjuctival Injection, No Frontal Tenderness, No Maxillary Tenderness Ear: Neither TM Bulge, Neither TM Erythema, Neither EAC Pain, Neither EAC Discharge Neck: Yes Supple, No Adenopathy Lungs: Yes Good Air Exchange, No Wheezes, No Ronchi, No Stridor, No Cough, No Labored Respirations, No Retractions, No Use of Accessory Muscles, No Other Abnormal Lung Sounds Heart: Yes Regular, No Murmur Abdomen: Yes Normal Bowel Sounds, No Tenderness, No Peritoneal Signs Skin: No Rash, No Edema Neurologic: Alert and oriented, no deficits. Musculoskeletal: Unremarkable. ED Course Vital Signs 06/15/21 02:32 Temperature 100.6 F H Pulse Rate 97 H Respiratory 16 Rate Blood Pressure 117/67 O2 Sat by Pulse 100 Oximetry ED Medical Decision Making - Medical Decision Making Patient medicated with Tylenol and Rocephin IM. She is taking p.o. Vital Signs 06/15/21 02:32 Temperature 100.6 F H Pulse Rate 97 H Respiratory 16 Rate Blood Pressure 117/67 O2 Sat by Pulse 100 Oximetry Patient being discharged home with discharge plan of care including diet, activity, medications and follow-up. She verbalizes understanding of plan of care. - Differential Diagnosis Pharyngitis/abscess/exudative pharyngitis Critical care attestation.: If time is entered above; I have spent that time in minutes in the direct care of this critically ill patient, excluding procedure time. ED Disposition Clinical Impression: Fever Pharyngitis Qualifiers: Pharyngitis/tonsillitis etiology: unspecified etiology Qualified Code(s): J02.9 - Acute pharyngitis, unspecified Disposition: 01 HOME / SELF CARE / HOMELESS Is pt being admited?: No Does the pt Need Aspirin: No Condition: Stable Instructions: Pharyngitis Additional Instructions: Medicine as ordered today. Motrin or Tylenol for fever follow-up with PCP in 1 week to make sure you are getting better. Have given you referral below Prescriptions: Amoxicillin [Trimox CAP] 500 mg PO BID #20 capsule Referrals: SHELLY THORNE MD [Primary Care Provider] - 3-5 Days Time of Disposition: 08:53
[2021-06-15] MEDS ORDERED: LIDOCAINE-MPF (1%) 10 MG/1 ML VIAL 5 ML INFILTRATI ONE (08:23)
[2021-06-15] MEDS ORDERED: ACETAMINOPHEN 500 MG TAB PO ONE (08:23)
[2021-06-15 09:17] VITALS: BP 120/72
== END 2021-06-15 09:17 | disposition home or self-care (01) ==
LOC: ED 02:28
DX: R50.9 Fever, unspecified (principal); J02.9 Acute pharyngitis, unspecified
CPT/HCPCS: 96372; 99282; J0696; J3490